=== PATIENT | male | born 1945 | race Caucasian/White ===

== ENCOUNTER 2016-10-05 21:25 | Emergency (ER) | payer MEDICARE | END 2016-10-05 22:20 | disposition left against medical advice (07) | LOC: ER1 21:25 | DX: Z53.21 Procedure and treatment not carried out due to patient leaving prior to being seen by health care provider (principal) ==

== ENCOUNTER 2020-08-13 21:38 | Emergency (ER) | payer OTHER, MEDICARE ==
[2020-08-13 22:52] LABS: HEMOGLOBIN 11.9 gm/dl (14.0-17.5); RED BLOOD COUNT 4.03 M/UL (4.20-5.50); WHITE BLOOD COUNT 9.5 K/UL (4.5-11.0)
[2020-08-13 23:13] LABS: BUN/CREATININE RATIO 20 (0-10)
[2020-08-14] MEDS ORDERED: LASIX40 MG PO (01:03)
[2020-08-14] MEDS ORDERED: K-DUR TAB 20 M20 MEQ PO (01:03)
== END 2020-08-14 01:27 | disposition home or self-care (01) ==
LOC: ER1 21:38
PROVIDERS: Emergency Medicine
DX: I50.9 Heart failure, unspecified (principal)
CPT/HCPCS: 36600; 71045; 80053; 82550; 82553; 82803; 83874; 83880; 84484; 85025; 93005; 96374; 99285; J1940

== ENCOUNTER 2020-10-27 20:40 | Emergency (ER) | payer MEDICARE, OTHER ==
[~2020-10-27 20:40] MED LIST: K-DUR TAB 20 M20 MEQ PO; LASIX40 MG PO
[2020-10-27 21:54] LABS: HEMOGLOBIN 13.7 gm/dl (14.0-17.5); RED BLOOD COUNT 4.66 M/UL (4.20-5.50); WHITE BLOOD COUNT 9.4 K/UL (4.5-11.0)
[2020-10-27] MEDS ORDERED: LEVOFLOXACIN500 MG PO (23:05)
[2020-10-27] MEDS ORDERED: TESSALON PERLE100 MG PO (23:05)
== END 2020-10-28 00:25 | disposition home or self-care (01) ==
LOC: ER1 20:40
PROVIDERS: Internal Medicine
DX: J40 Bronchitis, not specified as acute or chronic (principal); I11.0 Hypertensive heart disease with heart failure; I50.9 Heart failure, unspecified; E11.9 Type 2 diabetes mellitus without complications; E66.9 Obesity, unspecified; Z90.49 Acquired absence of other specified parts of digestive tract
CPT/HCPCS: 71046; 80053; 83880; 84484; 85025; 96365; 96375; 99285; J1940; J1956

== ENCOUNTER 2020-12-16 18:49 | Inpatient (IN) | payer MEDICARE, OTHER ==
[~2020-12-16] VITALS: Ht 177.8 cm; Wt 119.7 kg
[~2020-12-16 18:49] MED LIST changes: +LEVOFLOXACIN500 MG PO; +TESSALON PERLE100 MG PO
[2020-12-16 20:52] LABS: HEMOGLOBIN 15.3 gm/dl (14.0-17.5); RED BLOOD COUNT 5.24 M/UL (4.20-5.50); WHITE BLOOD COUNT 7.7 K/UL (4.5-11.0)
[2020-12-17 06:29] LABS: RED BLOOD COUNT 4.82 M/UL (4.20-5.50)
[2020-12-17] MEDS ORDERED: LASIX40 MG PO (08:28)
[2020-12-17] MEDS ORDERED: ZYRTEC10 MG PO (08:28)
[2020-12-17] MEDS ORDERED: LIPITOR80 MG PO (08:29)
[2020-12-17] MEDS ORDERED: ZYLOPRIM 300 M300 MG PO (08:29)
[2020-12-17] MEDS ORDERED: FISH OIL 1,0001 EAC5 PO (08:29)
[2020-12-17] MEDS ORDERED: OMEPRAZOLE40 MG PO (08:35)
[2020-12-17] MEDS ORDERED: AMLODIPINE BESY10 MG PO (08:35)
[2020-12-17] MEDS ORDERED: ZOLOFT25 MG PO (08:36)
[2020-12-17] MEDS ORDERED: CARVEDILOL25 MG PO (08:36)
[2020-12-17] MEDS ORDERED: ECOTRIN81 MG PO (08:36)
[2020-12-17] MEDS ORDERED: CO Q-10200 MG PO (08:36)
[2020-12-17] MEDS ORDERED: VITAMIN D325 MC6 PO (08:37)
[2020-12-17] MEDS ORDERED: [UNRECOGNIZED DRUG - OTHER] SQ (08:37)
[2020-12-17] MEDS ORDERED: GABAPENTIN300 MG PO (17:30)
[2020-12-18 05:52] LABS: HEMOGLOBIN 13.9 gm/dl (14.0-17.5); RED BLOOD COUNT 4.79 M/UL (4.20-5.50)
[2020-12-18 05:56] LABS: WHITE BLOOD COUNT 12.9 K/UL (4.5-11.0)
[2020-12-19 07:53] LABS: HEMOGLOBIN 13.7 gm/dl (14.0-17.5); RED BLOOD COUNT 4.72 M/UL (4.20-5.50); WHITE BLOOD COUNT 12.8 K/UL (4.5-11.0)
[2020-12-20 06:28] LABS: HEMOGLOBIN 13.8 gm/dl (14.0-17.5); RED BLOOD COUNT 4.83 M/UL (4.20-5.50); WHITE BLOOD COUNT 11.3 K/UL (4.5-11.0)
[2020-12-21 06:30] LABS: HEMOGLOBIN 13.2 gm/dl (14.0-17.5); RED BLOOD COUNT 4.56 M/UL (4.20-5.50); WHITE BLOOD COUNT 11.4 K/UL (4.5-11.0)
[2020-12-21 06:52] LABS: BUN/CREATININE RATIO 38 (0-10)
[2020-12-21] MEDS ORDERED: IPRAT-ALBUT 0.5-3 ML NEB (10:13)
[2020-12-21] MEDS ORDERED: ELIQUIS 5 MG TAB5 MG PO (10:13)
[2020-12-21] MEDS ORDERED: DECADRON6 MG PO (10:18)
== END 2020-12-21 14:17 | disposition home or self-care (01) | DRG 177 ==
LOC: ER1 18:49 → M/S 21:34 → CDU 21:34 → M/S 12-17 18:16
PROVIDERS: Internal Medicine; Preventive Medicine Occupational Medicine; ADMIT Internal Medicine
PROC: XW033E5 Introduction of Remdesivir Anti-infective into Peripheral Vein, Percutaneous Approach, New Technology Group 5 (ICD-10-PCS; principal; 2020-12-16)
PROC: 3E0333Z Introduction of Anti-inflammatory into Peripheral Vein, Percutaneous Approach (ICD-10-PCS; 2020-12-16)
PROC: B24BZZZ Ultrasonography of Heart with Aorta (ICD-10-PCS; 2020-12-19)
PROC: 8E0ZXY6 Isolation (ICD-10-PCS; 2020-12-19)
PROC: 5A09357 Assistance with Respiratory Ventilation, Less than 24 Consecutive Hours, Continuous Positive Airway Pressure (ICD-10-PCS; 2020-12-20)
DX: U07.1 COVID-19 (principal); J12.82 Pneumonia due to coronavirus disease 2019; J96.01 Acute respiratory failure with hypoxia; J15.9 Unspecified bacterial pneumonia; E66.2 Morbid (severe) obesity with alveolar hypoventilation; I13.0 Hypertensive heart and chronic kidney disease with heart failure and stage 1 through stage 4 chronic kidney disease, or unspecified chronic kidney disease; N17.9 Acute kidney failure, unspecified; I48.91 Unspecified atrial fibrillation; E11.22 Type 2 diabetes mellitus with diabetic chronic kidney disease; N18.30 Chronic kidney disease, stage 3 unspecified; I27.20 Pulmonary hypertension, unspecified; I34.0 Nonrheumatic mitral (valve) insufficiency; E86.0 Dehydration; E78.5 Hyperlipidemia, unspecified; M10.9 Gout, unspecified; K21.9 Gastro-esophageal reflux disease without esophagitis; F41.9 Anxiety disorder, unspecified; I25.10 Atherosclerotic heart disease of native coronary artery without angina pectoris; F32.9 Major depressive disorder, single episode, unspecified; E11.40 Type 2 diabetes mellitus with diabetic neuropathy, unspecified; E55.9 Vitamin D deficiency, unspecified; N40.0 Benign prostatic hyperplasia without lower urinary tract symptoms; I50.9 Heart failure, unspecified; Z90.89 Acquired absence of other organs; Z79.82 Long term (current) use of aspirin; Z79.4 Long term (current) use of insulin; Z68.37 Body mass index [BMI] 37.0-37.9, adult; Z83.3 Family history of diabetes mellitus; Z79.899 Other long term (current) drug therapy
CPT/HCPCS: ECHO; 36415; 36600; 71045; 71250; 80048; 80053; 81001; 82728; 82803; 82947; 82962; 83690; 84439; 84443; 85025; 85027; 85379; 85652; 86140; 87040; 87086; 90471; 90715; 93005; 93270; 93306; 94640; 94660; 94664; 94760; 96374; 96375; 99285; G0378; J0456; J0696; J1100; J1650; J7030; U0002

== ENCOUNTER → 2021-02-09 | Outpatient (CLI) | payer MEDICARE ==
[~2021-02-09] MED LIST changes: +AMLODIPINE BESY10 MG PO; +CARVEDILOL25 MG PO; +CO Q-10200 MG PO; +DECADRON6 MG PO; +ECOTRIN81 MG PO; +ELIQUIS 5 MG TAB5 MG PO; +FISH OIL 1,0001 EAC5 PO; +GABAPENTIN300 MG PO; +IPRAT-ALBUT 0.5-3 ML NEB; +LIPITOR80 MG PO; +OMEPRAZOLE40 MG PO; +VITAMIN D325 MC6 PO; +ZOLOFT25 MG PO; +ZYLOPRIM 300 M300 MG PO; +ZYRTEC10 MG PO; +[UNRECOGNIZED DRUG - OTHER] SQ
== END ==
LOC: HEART 5 12:07
DX: R09.02 Hypoxemia (principal); U09.9 Post COVID-19 condition, unspecified; R91.8 Other nonspecific abnormal finding of lung field
CPT/HCPCS: 36600; 71046; 82803

== ENCOUNTER 2021-04-11 22:58 | Inpatient (IN) | payer MEDICARE, MEDICAID ==
[~2021-04-11] VITALS: Ht 177.8 cm; Wt 120.8 kg
[2021-04-11 23:26] LABS: HEMOGLOBIN 12.8 gm/dl (14.0-17.5); RED BLOOD COUNT 4.38 M/UL (4.20-5.50); WHITE BLOOD COUNT 9.2 K/UL (4.5-11.0)
[2021-04-11 23:54] LABS: BUN/CREATININE RATIO 15 (0-10)
[2021-04-12] MEDS ORDERED: HUMULIN R500 UNIT/1 SQ (11:36)
[2021-04-12] MEDS ORDERED: CARVEDILOL25 MG PO (11:38)
[2021-04-12 13:30] LABS: HEMOGLOBIN 11.8 gm/dl (14.0-17.5); RED BLOOD COUNT 4.12 M/UL (4.20-5.50); WHITE BLOOD COUNT 6.4 K/UL (4.5-11.0)
--- NOTE | 2021-04-12 16:19 | NUR ---
1350: rECEIVED TO FLOOR FROM THE ED, PATIENT GLUCOSE CHECKED D/T "RUNNING HIGH". GLUCOMETER NOTED "TOO HIGH TO READ". STAT GLUCOSE ORDERED FROM LAB. RN NOTIFIED DR STEVENS AND ALSO SPOKE WITH LAB , PER PATIENT HOME INSULIN HUMULIN R 500/UNIT CONCENTRATE. DR STEVENS GIVES TO ORDER TO SEND PATIENT TO ICU FOR INSULIN GTT. PATIENT IS ASYMPTOMATIC AT THIS TIME AND DENIES ANY C/O. AWAITING ICU BED ASSIGNMENT.
[2021-04-13 05:54] LABS: HEMOGLOBIN 11.5 gm/dl (14.0-17.5); RED BLOOD COUNT 4.1 M/UL (4.20-5.50)
[2021-04-13 05:56] LABS: WHITE BLOOD COUNT 9.3 K/UL (4.5-11.0)
--- NOTE | 2021-04-13 21:32 | NUR ---
PATIENT ARRIVED TO FLOOR AT APPROXIMATELY 2040 AND SETTLED INTO ROOM. VITALS ARE STABLE, BEDSIDE COMMODE PLACED AT BEDSIDE AND PT HAD BM. NO S/S DISTRESS AT THIS TIME. ORIENTED PT TO ROOM, DEMONSTRATED CALL [id number] AND INSTRUCTED PT TO CALL FOR WANTS/NEEDS AND PT VERBALLY AGREED.
[2021-04-18] MEDS ORDERED: CHLORTHALIDONE25 MG PO (09:41)
--- NOTE | 2021-04-18 10:05 | NUR ---
ROOM AIR OXYGEN SAT 85%
== END 2021-04-18 19:05 | disposition home or self-care (01) | DRG 193 ==
LOC: ER1 22:58 → CDU 04-12 01:20 → PROG CARE 04-12 01:20 → CDU 04-12 15:48 → M/S 04-12 15:58 → CCU 04-12 18:35 → PROG CARE 04-13 20:57
PROVIDERS: Internal Medicine; Physician Assistant; ADMIT Internal Medicine
DX: J18.9 Pneumonia, unspecified organism (principal); I50.33 Acute on chronic diastolic (congestive) heart failure; Z20.822 Contact with and (suspected) exposure to COVID-19; J80 Acute respiratory distress syndrome; Z68.41 Body mass index [BMI] 40.0-44.9, adult; I13.0 Hypertensive heart and chronic kidney disease with heart failure and stage 1 through stage 4 chronic kidney disease, or unspecified chronic kidney disease; E11.40 Type 2 diabetes mellitus with diabetic neuropathy, unspecified; E11.65 Type 2 diabetes mellitus with hyperglycemia; E11.22 Type 2 diabetes mellitus with diabetic chronic kidney disease; N18.30 Chronic kidney disease, stage 3 unspecified; E66.01 Morbid (severe) obesity due to excess calories; I44.0 Atrioventricular block, first degree; N40.0 Benign prostatic hyperplasia without lower urinary tract symptoms; M10.9 Gout, unspecified; G47.33 Obstructive sleep apnea (adult) (pediatric); E78.5 Hyperlipidemia, unspecified; I48.91 Unspecified atrial fibrillation; I44.7 Left bundle-branch block, unspecified; Z79.01 Long term (current) use of anticoagulants; Z79.82 Long term (current) use of aspirin; Z86.16 Personal history of COVID-19; Z83.3 Family history of diabetes mellitus; Z90.49 Acquired absence of other specified parts of digestive tract; Z79.4 Long term (current) use of insulin
CPT/HCPCS: 0240U; 36415; 36600; 71045; 80048; 80053; 82550; 82553; 82803; 82947; 82962; 83874; 83880; 84132; 84484; 85025; 85610; 85730; 86140; 93005; 94640; 94664; 94760; 96374; 96375; 99285; J0456; J0696; J1205; J1940; J2930; J7030; J7050

== ENCOUNTER 2021-04-25 17:16 | Emergency (ER) | payer MEDICARE ==
[~2021-04-25 17:16] MED LIST changes: +CHLORTHALIDONE25 MG PO; +HUMULIN R500 UNIT/1 SQ
[2021-04-25 18:48] LABS: HEMOGLOBIN 11.5 gm/dl (14.0-17.5); RED BLOOD COUNT 4.02 M/UL (4.20-5.50)
[2021-04-25 19:37] LABS: BUN/CREATININE RATIO 21 (0-10)
[2021-04-26 05:12] LABS: HEMOGLOBIN 10.8 gm/dl (14.0-17.5); RED BLOOD COUNT 3.9 M/UL (4.20-5.50); WHITE BLOOD COUNT 10.9 K/UL (4.5-11.0)
== END 2021-04-26 15:30 | disposition home or self-care (01) ==
LOC: ER1 17:16 → CDU 20:38
PROVIDERS: Emergency Medicine
DX: U07.1 COVID-19 (principal); G45.9 Transient cerebral ischemic attack, unspecified; I13.0 Hypertensive heart and chronic kidney disease with heart failure and stage 1 through stage 4 chronic kidney disease, or unspecified chronic kidney disease; I50.32 Chronic diastolic (congestive) heart failure; E11.22 Type 2 diabetes mellitus with diabetic chronic kidney disease; N18.30 Chronic kidney disease, stage 3 unspecified; E11.40 Type 2 diabetes mellitus with diabetic neuropathy, unspecified; E11.43 Type 2 diabetes mellitus with diabetic autonomic (poly)neuropathy; K31.84 Gastroparesis; I48.91 Unspecified atrial fibrillation; Z79.82 Long term (current) use of aspirin; Z79.899 Other long term (current) drug therapy
CPT/HCPCS: 70450; 71045; 80053; 82550; 82553; 83874; 83880; 84484; 85025; 85027; 85610; 85730; 93005; 94640; 94664; 99285; U0002

== ENCOUNTER 2021-05-07 05:03 | Inpatient (IN) | payer OTHER, MEDICARE ==
[~2021-05-07] VITALS: Ht 177.8 cm; Wt 127.0 kg
[2021-05-07 05:32] LABS: RED BLOOD COUNT 3.83 M/UL (4.20-5.50); WHITE BLOOD COUNT 10.7 K/UL (4.5-11.0)
[2021-05-07 05:53] LABS: BUN/CREATININE RATIO 25 (0-10)
[2021-05-08 11:31] LABS: RED BLOOD COUNT 3.78 M/UL (4.20-5.50); WHITE BLOOD COUNT 12.8 K/UL (4.5-11.0)
[2021-05-08 12:00] LABS: BUN/CREATININE RATIO 32 (0-10)
[2021-05-08] MEDS ORDERED: CO Q-10200 MG PO (12:32)
[2021-05-08] MEDS ORDERED: FISH OIL 1,0001 EACH PO (12:32)
[2021-05-09 07:21] LABS: HEMOGLOBIN 10.3 gm/dl (14.0-17.5); RED BLOOD COUNT 3.68 M/UL (4.20-5.50); WHITE BLOOD COUNT 10.8 K/UL (4.5-11.0)
[2021-05-10 07:16] LABS: HEMOGLOBIN 10.3 gm/dl (14.0-17.5); RED BLOOD COUNT 3.73 M/UL (4.20-5.50); WHITE BLOOD COUNT 9.8 K/UL (4.5-11.0)
[2021-05-11 07:17] LABS: RED BLOOD COUNT 3.57 M/UL (4.20-5.50); WHITE BLOOD COUNT 7.5 K/UL (4.5-11.0)
[2021-05-11] MEDS ORDERED: OMNICEF 300 MG300 MG PO (09:49)
[2021-05-11] MEDS ORDERED: PROVENTIL HFA6.7 GM INH (09:49)
[2021-05-11] MEDS ORDERED: DIAMOX 250 MG250 MG PO (09:49)
[2021-05-11] MEDS ORDERED: AZITHROMYCIN500 MG PO (09:49)
[2021-05-11] MEDS ORDERED: HUMULIN R500 UNIT/1 SQ (09:56)
== END 2021-05-11 12:50 | disposition home health service (06) | DRG 193 ==
LOC: ER1 05:03 → CDU 08:52 → MED SURG 4 08:52 → CDU 05-08 16:53 → MED SURG 4 05-08 17:36
PROVIDERS: Internal Medicine; Student in an Organized Health Care Education/Training Program; ADMIT Internal Medicine
PROC: B24BZZZ Ultrasonography of Heart with Aorta (ICD-10-PCS; principal; 2021-05-08)
PROC: 5A09357 Assistance with Respiratory Ventilation, Less than 24 Consecutive Hours, Continuous Positive Airway Pressure (ICD-10-PCS; 2021-05-11)
DX: J18.9 Pneumonia, unspecified organism (principal); J96.21 Acute and chronic respiratory failure with hypoxia; I50.33 Acute on chronic diastolic (congestive) heart failure; E66.2 Morbid (severe) obesity with alveolar hypoventilation; E87.3 Alkalosis; J44.0 Chronic obstructive pulmonary disease with (acute) lower respiratory infection; Z68.41 Body mass index [BMI] 40.0-44.9, adult; Z20.822 Contact with and (suspected) exposure to COVID-19; I48.0 Paroxysmal atrial fibrillation; E11.40 Type 2 diabetes mellitus with diabetic neuropathy, unspecified; F41.9 Anxiety disorder, unspecified; F32.A Depression, unspecified; K21.9 Gastro-esophageal reflux disease without esophagitis; N40.0 Benign prostatic hyperplasia without lower urinary tract symptoms; I44.7 Left bundle-branch block, unspecified; M10.9 Gout, unspecified; E78.5 Hyperlipidemia, unspecified; G47.33 Obstructive sleep apnea (adult) (pediatric); I11.0 Hypertensive heart disease with heart failure; Z86.73 Personal history of transient ischemic attack (TIA), and cerebral infarction without residual deficits; Z87.442 Personal history of urinary calculi; Z86.16 Personal history of COVID-19; Z99.81 Dependence on supplemental oxygen; Z79.01 Long term (current) use of anticoagulants; Z90.49 Acquired absence of other specified parts of digestive tract; Z83.3 Family history of diabetes mellitus; Z79.82 Long term (current) use of aspirin
CPT/HCPCS: ECHO; 36415; 36600; 71045; 80048; 80053; 81001; 82009; 82550; 82553; 82803; 82962; 83036; 83605; 83735; 83880; 84484; 85025; 85027; 86140; 87040; 93005; 93306; 94640; 94660; 94664; 94760; 96374; 97116-GP-CQ; 97161; 99285; J0456; J0696; J1100; J2543; J7030; Q9957; U0002

== ENCOUNTER 2021-08-27 23:32 | Emergency (ER) | payer MEDICARE ==
[~2021-08-27 23:32] MED LIST changes: +AZITHROMYCIN500 MG PO; +DIAMOX 250 MG250 MG PO; +FISH OIL 1,0001 EACH PO; +OMNICEF 300 MG300 MG PO; +PROVENTIL HFA6.7 GM INH
[2021-08-28 02:37] LABS: RED BLOOD COUNT 4.56 M/UL (4.20-5.50); WHITE BLOOD COUNT 13.4 K/UL (4.5-11.0)
== END 2021-08-28 04:30 | disposition home or self-care (01) ==
LOC: ER1 23:32
PROVIDERS: Physician Assistant Medical
DX: S00.83XA Contusion of other part of head, initial encounter (principal); I11.0 Hypertensive heart disease with heart failure; I50.9 Heart failure, unspecified; I48.91 Unspecified atrial fibrillation; E11.9 Type 2 diabetes mellitus without complications; Z86.73 Personal history of transient ischemic attack (TIA), and cerebral infarction without residual deficits; W01.10XA Fall on same level from slipping, tripping and stumbling with subsequent striking against unspecified object, initial encounter; Y92.009 Unspecified place in unspecified non-institutional (private) residence as the place of occurrence of the external cause
CPT/HCPCS: 70450; 71045; 72125; 80053; 82550; 82553; 82962; 84484; 85025; 93005; 99285

== ENCOUNTER 2021-10-18 15:36 | Emergency (ER) | payer MEDICARE, OTHER ==
[2021-10-18 16:34] LABS: HEMOGLOBIN 13.5 gm/dl (14.0-17.5); RED BLOOD COUNT 4.72 M/UL (4.20-5.50); WHITE BLOOD COUNT 8.3 K/UL (4.5-11.0)
[2021-10-18 17:02] LABS: BUN/CREATININE RATIO 21 (0-10)
[2021-10-18] MEDS ORDERED: LASIX 40 MG TAB40 MG PO (21:35)
[2021-10-18] MEDS ORDERED: K-TAB ER20 MEQ PO (21:35)
== END 2021-10-18 23:40 | disposition home or self-care (01) ==
LOC: ER1 15:36
PROVIDERS: Physician Assistant
DX: I11.0 Hypertensive heart disease with heart failure (principal); I50.9 Heart failure, unspecified; E11.65 Type 2 diabetes mellitus with hyperglycemia; Z20.822 Contact with and (suspected) exposure to COVID-19
CPT/HCPCS: 36600; 71045; 80053; 82550; 82553; 82803; 82962; 83880; 84484; 85025; 93005; 96374; 99285; U0002

== ENCOUNTER 2021-12-29 10:52 | Emergency (ER) | payer MEDICARE, OTHER ==
[~2021-12-29 10:52] MED LIST changes: +K-TAB ER20 MEQ PO; +LASIX 40 MG TAB40 MG PO
[2021-12-29 11:25] LABS: RED BLOOD COUNT 4.45 M/UL (4.20-5.50); WHITE BLOOD COUNT 10.3 K/UL (4.5-11.0)
== END 2021-12-29 13:37 | disposition home or self-care (01) ==
LOC: ER1 10:52
DX: R06.00 Dyspnea, unspecified (principal); I11.9 Hypertensive heart disease without heart failure; E78.5 Hyperlipidemia, unspecified; E11.9 Type 2 diabetes mellitus without complications; E66.9 Obesity, unspecified; Z87.442 Personal history of urinary calculi; Z86.73 Personal history of transient ischemic attack (TIA), and cerebral infarction without residual deficits
CPT/HCPCS: 71045; 80053; 82550; 82553; 84484; 85025; 93005; 99285